=== PATIENT | male | born 1995 | race Caucasian/White ===

== ENCOUNTER 2022-03-06 22:36 | Emergency (ER) | payer OTHER ==
[~2022-03-06] VITALS: Ht 180.3 cm; Wt 86.7 kg
[2022-03-06 23:28] VITALS: BP 130/88
[2022-03-07 01:07] LABS: Hepatitis B Surface Antibody Positive (Negative)
[2022-03-07] MEDS ORDERED: RALT400T PO (02:11)
[2022-03-07] MEDS ORDERED: EMTRTAB7 PO (02:11)
== END 2022-03-07 03:05 | disposition home or self-care (01) ==
LOC: ER 22:36
DX: S69.81XA Other specified injuries of right wrist, hand and finger(s), initial encounter (principal); F17.210 Nicotine dependence, cigarettes, uncomplicated; Z20.5 Contact with and (suspected) exposure to viral hepatitis; Z88.1 Allergy status to other antibiotic agents; W46.0XXA Contact with hypodermic needle, initial encounter; Y93.89 Activity, other specified; Y92.89 Other specified places as the place of occurrence of the external cause; Y99.8 Other external cause status
CPT/HCPCS: 36415; 86703; 86706; 86803; 87340